=== PATIENT | male | born 1945 | race Two or more races ===

== ENCOUNTER 2024-07-04 08:15 | Inpatient (IN) | payer OTHER ==
[~2024-07-04] VITALS: Ht 180.3 cm; Wt 96.2 kg
[2024-07-04] MEDS ORDERED: NORVASC5 MG PO (10:04)
[2024-07-04] MEDS ORDERED: CARDURA8 MG PO (10:04)
[2024-07-04] MEDS ORDERED: ATORVASTATIN CA40 MG PO (10:04)
[2024-07-04] MEDS ORDERED: ECOTRIN81 MG PO (10:05)
[2024-07-04] MEDS ORDERED: HUMALOG100 UNIT/2 SQ (10:05)
[2024-07-04 11:00] LABS: HEMATOCRIT 37.3 % (39.0-48.0); HEMOGLOBIN 12.4 g/dL (13-16.00); MEAN CELL VOLUME 90.6 fL (80.0-100.00); MEAN CORPUSCULAR HEMOGLOBIN 30.2 pg (27.00-32.0); MEAN CORPUSCULAR HGB CONC 33.3 g/dl (32.0-36.0); PLATELET COUNT 224 K/uL (150-450); RED BLOOD COUNT 4.12 M/uL (4.00-6.00); RED CELL DISTRIBUTION WIDTH 13.9 % (11.5-14.5)
[2024-07-04 11:05] LABS: PH,URINE 5.5 (5.0-8.0); URINE APPEARANCE Clear; URINE BILIRRUBIN Negative (NEGATIVE); URINE BLOOD Negative; URINE COLOR Yellow; URINE GLUCOSE Negative (NEGATIVE); URINE KETONE Trace (NEGATIVE); URINE LEUKOCYTE Negative; URINE NITRATE Negative; URINE PROTEIN Negative (NEGATIVE); URINE UROBILINOGEN 0.2 E.U./dl
[2024-07-04 11:10] LABS: URINE BACTERIA 127.2 uL (0.0-1933); URINE EPITHELIAL CELLS 7.1 uL (0.0-38.8); URINE RBC 5.4 uL (0.0-20.8); URINE WBC 9.8 uL (0.0-23.2)
[2024-07-04 11:19] LABS: INR 0.99; PARTIAL THROMBOPLASTIN TIME 27.6 SECONDS (22.0-34.0); PROTHROMBIN TIME 10.8 SECONDS (9.0-11.5)
[2024-07-04 11:32] LABS: ALBUMIN 3.7 gm/dL (3.4-5.0); BILIRUBIN TOTAL 0.62 mg/dL (0.3-1.2); CALCIUM 9.6 mg/dL (8.5-10.1); CREATININE SERUM 0.79 mg/dL (0.70-1.30); GFR 95.11; GLOBULINA 2.8 G/DL (2.4-3.5); POTASSIUM 4.24 mEq/L (3.5-5.1); TOTAL PROTEIN 6.5 gm/dL (6.4-8.2)
[2024-07-11] MEDS ORDERED: CEFAZOLIN SODIUM 1,000 MG VIAL ONE (09:35)
[2024-07-11] MEDS ORDERED: TRANEXAMIC ACID 100MG/1ML (1000MG) AMPUL IV ONE (09:35)
[2024-07-11] MEDS ORDERED: KETOROLAC TROMETHAMINE 60 MG VIAL IM ONE (12:18)
[2024-07-11] MEDS ORDERED: VANCOMYCIN HCL 1,000 MG VIAL ONE (12:19)
[2024-07-11] MEDS ORDERED: MORPHINE SULFATE 4 MG/ML VIAL IV ONE (12:45)
[2024-07-11] MEDS ORDERED: MORPHINE SULFATE 4 MG/ML CARTRIDGE IV PRN (14:15)
[2024-07-11] MEDS ORDERED: MORPHINE SULFATE 2 MG/ML CARTRIDGE IV NR (14:15)
[2024-07-11] MEDS ORDERED: ONDANSETRON HCL 2 MG/ML VIAL IV PRN (14:15)
[2024-07-11] MEDS ORDERED: SODIUM CHLORIDE 0.45 % 1,000 ML IV SCH (14:15)
[2024-07-11 15:13] LABS: HEMATOCRIT 34.2 % (39.0-48.0); HEMOGLOBIN 11.5 g/dL (13-16.00); RED BLOOD COUNT 3.76 M/uL (4.00-6.00)
[2024-07-11] MEDS ORDERED: CEFAZOLIN SODIUM 1,000 MG VIAL IV SCH (18:00)
[2024-07-11] MEDS ORDERED: GENTAMICIN SULFATE 40 MG/ML VIAL IV SCH (21:00)
[2024-07-12 00:27] VITALS: BP 155/67; O2SAT 96
[2024-07-12 01:28] LABS: HEMATOCRIT 30.4 % (39.0-48.0); HEMOGLOBIN 10.4 g/dL (13-16.00); MEAN CELL VOLUME 90.9 fL (80.0-100.00); MEAN CORPUSCULAR HGB CONC 34.1 g/dl (32.0-36.0); PLATELET COUNT 178 K/uL (150-450); RED BLOOD COUNT 3.35 M/uL (4.00-6.00); RED CELL DISTRIBUTION WIDTH 14.3 % (11.5-14.5)
[2024-07-12] MEDS ORDERED: TRAMADOL HCL 50 MG TABLET PO PRN (06:30)
[2024-07-12 08:54] VITALS: BP 142/57; O2SAT 96
[2024-07-12] MEDS ORDERED: RIVAROXABAN 10 MG TAB PO SCH (09:00)
[2024-07-12] MEDS ORDERED: ATORVASTATIN CALCIUM 40 MG TABLET PO SCH (09:00)
[2024-07-12] MEDS ORDERED: CELECOXIB 200 MG CAPSULE PO SCH (09:00)
[2024-07-12] MEDS ORDERED: DOXAZOSIN MESYLATE 8 MG TABLET PO SCH (09:00)
[2024-07-12] MEDS ORDERED: BACITRACIN 28.35 GM OINT.TUBE TOP SCH (09:00)
[2024-07-12] MEDS ORDERED: SENNA/DOCUSATE SODIUM 1 TAB TABLET PO SCH (09:00)
[2024-07-12] MEDS ORDERED: AMLODIPINE BESYLATE 5 MG TABLET PO SCH (09:00)
[2024-07-12] MEDS ORDERED: IRON FUM,PS/FOLIC/BCOMP,C NO.9 1 CAP CAPSULE PO SCH (09:00)
[2024-07-12] MEDS ORDERED: DEXTROSE 50 % IN WATER 0.5 G/ML DISP.SYRIN IV PRN (11:00)
[2024-07-12] MEDS ORDERED: INSULIN LISPRO 1,000 UNIT/10 ML UNITS SUBCUTANEO PRN (11:00)
[2024-07-12 16:48] VITALS: BP 137/60; O2SAT 98
[2024-07-13 00:08] VITALS: BP 164/63; O2SAT 95
[2024-07-13] MEDS ORDERED: XARELTO10 MG PO (06:19)
[2024-07-13] MEDS ORDERED: Septra Ds Tablet PO (06:19)
[2024-07-13] MEDS ORDERED: TRAMADOL HCL50 MG PO (06:19)
[2024-07-13] MEDS ORDERED: INTEGRA PLUS C1 EACH PO (06:19)
[2024-07-13 06:35] LABS: HEMATOCRIT 26.8 % (39.0-48.0); HEMOGLOBIN 9.3 g/dL (13-16.00); MEAN CELL VOLUME 89.6 fL (80.0-100.00); MEAN CORPUSCULAR HGB CONC 34.6 g/dl (32.0-36.0); PLATELET COUNT 175 K/uL (150-450); RED BLOOD COUNT 2.99 M/uL (4.00-6.00); RED CELL DISTRIBUTION WIDTH 14.3 % (11.5-14.5)
[2024-07-13 08:00] VITALS: BP 123/62; O2SAT 99
[2024-07-13] MEDS ORDERED: SULFAMETHOXAZOLE/TRIMETHOPRIM DS 1 TAB PO SCH (09:00)
== END 2024-07-13 16:56 | DRG 470 ==
LOC: O/R 07-11 06:05 → SURH 07-11 08:15 → SURG 07-11 15:28
PROVIDERS: ADMIT Orthopaedic Surgery Sports Medicine; ATTEND Orthopaedic Surgery Sports Medicine
PROC: 0JCN0ZZ Extirpation of Matter from Right Lower Leg Subcutaneous Tissue and Fascia, Open Approach (ICD-10-PCS; 2024-07-11)
PROC: 0SRC0J9 Replacement of Right Knee Joint with Synthetic Substitute, Cemented, Open Approach (ICD-10-PCS; principal; 2024-07-11 14:00)
DX: M17.11 Unilateral primary osteoarthritis, right knee (principal); M79.5 Residual foreign body in soft tissue; E11.9 Type 2 diabetes mellitus without complications; I10 Essential (primary) hypertension; Z79.4 Long term (current) use of insulin